=== PATIENT | female | born 1990 | race Caucasian/White ===

== ENCOUNTER 2018-01-21 14:23 | Emergency (ER) | payer SELFPAY ==
[~2018-01-21 14:23] MED LIST: Sodium Chloride 0.9% 1,000 ML BAG ONE
[2018-01-21] MEDS ORDERED: Fentanyl 100 MCG/2 ML VIAL ONE ×2 (14:42→17:38)
[2018-01-21] MEDS ORDERED: Ondansetron HCl/PF 4 MG/2 ML Vial ONE (14:43)
[2018-01-21 14:46] LABS: Bilirubin Negative (Negative); Blood, Urine Negative (Negative); Clarity Hazy (Clear); Glucose, Urine (Dipstick) Negative (Negative); Leukocyte Small (Negative); Nitrite Positive (Negative); Pregu Control Background? CLEAR/WHITE (CLR/WHITE); Pregu Control Bar Appear? YES (CONTROL BAR); Protein, Urine (Dipstick) Negative (Neg-Trace); Specific Gravity 1.015 (1.002-1.036); Specific Gravity, Urine 1.015 (1.005-1.030); Urobilinogen 0.2 mg/dL (0.2-1.0)
[2018-01-21 14:48] LABS: Pregnancy Test - Urine (BHCG) Negative (Negative)
[2018-01-21 14:52] LABS: Bacteria/HPF 4+ HPF (None Seen); RBC/HPF None Seen HPF (0-3)
[2018-01-21 15:13] LABS: #Basophils 0.1 thou/uL (0.0-0.2); #Eosinphils 0.3 thou/uL (0.0-0.7); #Lymphocytes 2.8 thou/uL (1.20-3.40); #Monocytes 0.7 thou/uL (0.11-0.59); #Neutrophils 2.8 thou/uL (1.40-6.50); %Basophils 1.7 % (0.0-1.0); %Eosinophils 4.1 % (0.0-10.0); %Lymphocytes 41.4 % (21.0-51.0); %Neutrophils 41.8 % (42.0-75.0); Mean Corpuscular Hemoglobin 27.8 pg (27.0-31.0); Mean Corpuscular Volume 86.7 fL (78.0-98.0); Mean Platelet Volume 10.3 fL (7.4-10.4); Platelet Count 188 thou/uL (130-400); RBC Distribution Width 12.1 % (11.5-14.5); Red Blood Cell (RBC) Count 5.03 mill/uL (4.20-5.40); White Blood Cell (WBC) Count 6.6 thou/uL (4.8-10.8)
[2018-01-21] MEDS ORDERED: cefTRIAXone\\ROCEPHIN 1 GM VIAL ONE (15:21)
[2018-01-21 15:27] LABS: Anion Gap 15 mmol/L (10-20); BUN (Urea Nitrogen) 7 mg/dL (7.0-18.7); Calc. Creatinine Clearance 0 mL/min (70-130); Calcium 9.7 mg/dL (7.8-10.44); Carbon Dioxide 23 mmol/L (22-29); Chloride 105 mmol/L (98-107); Estimated GFR-MDRD 87; Glucose 74 mg/dL (70-105); Potassium 3.3 mmol/L (3.5-5.1); Sodium 140 mmol/L (136-145)
--- NOTE | 2018-01-21 17:20 | CT ---
CT ABDOMEN AND PELVIS WITH IV CONTRAST: Indication: Right lower quadrant abdominal pain. FINDINGS: There is a normal appendix in the right lower quadrant. There is a 3.7 cm cyst involving the left adn exa with some mild haley adnexal inflammatory stranding seen within the right lower quadrant may refle ct mild partial rupture. There is mild free fluid in the cul-de-sac. There is a 2 cm cystic abnormali ty involving the right adnexa. The visualized bladder, rectum, and perirectal soft tissues are unrema rkable appearing. There is a mild amount of retained stool seen within the colon. The visualized small bowel is of norm al caliber. The liver, spleen, pancreas, adrenal glands, and kidneys appear within normal limits. IMPRESSION: 1. Findings suspicious for partial rupture of left adnexal cyst. This is incompletely characterized b y CT. Pelvic ultrasound is recommended for additional characterization. 2. 2 cm peripherally enhancing cystic lesion suspicious within the right adnexa may reflect an involu ting cyst. Further evaluation with a pelvic ultrasound may be helpful. 3. Mild free fluid in the pelvis. 4. Normal appendix in the right lower quadrant of the abdomen. POS: [facility]
== END 2018-01-21 17:45 | disposition home or self-care (01) ==
LOC: MADERS 14:23
DX: N83.202 Unspecified ovarian cyst, left side (principal); N39.0 Urinary tract infection, site not specified; F17.210 Nicotine dependence, cigarettes, uncomplicated
CPT/HCPCS: 74177; 80048; 81003; 81015; 81025; 85025; 96365; 96375; 96376; J0696; J2405; J3010; J7050

== ENCOUNTER 2018-01-23 21:05 | Emergency (ER) | payer SELFPAY ==
[2018-01-23] MEDS ORDERED: Ondansetron ODT 4 MG TAB ONE (21:21)
== END 2018-01-23 21:58 | disposition home or self-care (01) ==
LOC: MADERS 21:05
DX: R11.2 Nausea with vomiting, unspecified (principal); F17.210 Nicotine dependence, cigarettes, uncomplicated; Z79.899 Other long term (current) drug therapy
CPT/HCPCS: 99283; Q0162

== ENCOUNTER 2023-07-21 11:45 | Emergency (ER) | payer SELFPAY ==
[~2023-07-21 11:45] MED LIST changes: +Iopamidol 370 76% 100 ML VIAL ONE; -Sodium Chloride 0.9% 1,000 ML BAG ONE
[2023-07-21] MEDS ORDERED: Ondansetron PF 4 MG/2 ML Vial ONE (12:28)
[2023-07-21] MEDS ORDERED: Ketorolac Tromethamine 30 MG (1 mL) VIAL ONE (12:28)
[2023-07-21] MEDS ORDERED: Sodium Chloride 0.9% 1,000 ML ONE (12:28)
[2023-07-21 12:55] LABS: #Basophils 0.1 thou/uL (0.0-0.2); #Eosinphils 0.1 thou/uL (0.0-0.7); #Monocytes 0.4 thou/uL (0.11-0.59); #Neutrophils 4.4 thou/uL (1.40-6.50); %Basophils 0.9 % (0.0-1.0); %Eosinophils 1.9 % (0.0-10.0); %Monocytes 5.9 % (0.0-10.0); %Neutrophils 62.4 % (42.0-75.0); Hematocrit 42.2 % (36.0-47.0); Hemoglobin 13.6 g/dL (12.0-16.0); Mean Corpuscular HGB CONC 32.1 g/dL (32.0-36.0); Mean Corpuscular Hemoglobin 29.2 pg (27.0-31.0); Mean Platelet Volume 11.4 fL (7.4-10.4); Platelet Count 217 10x3/uL (130-400); RBC Distribution Width 12.3 % (11.5-14.5); Red Blood Cell (RBC) Count 4.64 mill/uL (4.20-5.40)
[2023-07-21 13:04] LABS: BHCG - Serum Negative (NEGATIVE); Pregs Control Background? CLEAR/WHITE (CLR/WHITE); Pregs Control Bar Appear? YES (CONTROL BAR)
[2023-07-21 13:13] LABS: ALT (SGPT) 19 U/L (8-55); AST (SGOT) 17 U/L (5-34); Albumin 4.4 g/dL (3.5-5.0); Alkaline Phosphatase 83 U/L (40-110); Anion Gap 13 mmol/L (10-20); BUN (Urea Nitrogen) 6 mg/dL (7.0-18.7); Bilirubin, Total 0.5 mg/dL (0.2-1.2); Calc. Creatinine Clearance 0 mL/min (70-130); Calcium 9.3 mg/dL (7.8-10.44); Carbon Dioxide 25 mmol/L (22-29); Chloride 107 mmol/L (98-107); Estimated GFR 93; Globulin 2.9 g/dL (2.4-3.5); Glucose 102 mg/dL (70-105); Lipase 22 U/L (8-78); Potassium 3.6 mmol/L (3.5-5.1); Protein, Total 7.3 g/dL (6.0-8.3); Sodium 141 mmol/L (136-145)
[2023-07-21 14:12] LABS: Bilirubin Negative (Negative); Blood, Urine Trace (Negative); Clarity Clear (Clear); Glucose, Urine (Dipstick) Negative (Negative); Ketone, Urine Negative (Negative); Leukocyte Negative (Negative); Nitrite Negative (Negative); Protein, Urine (Dipstick) Negative (Neg-Trace); Specific Gravity, Urine 1.015 (1.005-1.030); Urobilinogen 0.2 mg/dL (Less than 2)
[2023-07-21 14:19] LABS: Bacteria/HPF None Seen HPF (None Seen); CAUTI Indications for Culture Dysuria,urgency,freq; RBC/HPF 0-3 HPF (0-3); WBC/HPF 0-3 HPF (0-3)
[2023-07-21 14:20] LABS: Urine Culture Reflex No No
== END 2023-07-21 14:29 | disposition home or self-care (01) ==
LOC: MADERS 11:45
DX: N94.0 Mittelschmerz (principal); F17.210 Nicotine dependence, cigarettes, uncomplicated
CPT/HCPCS: 74177; 80053; 81001; 83605; 83690; 84703; 85025; 96374; 96375; J1885; J2405; J7050; Q9967